=== PATIENT | male | born 1980 | race African-American/Black ===

== ENCOUNTER 2021-05-09 15:29 | Emergency (ER) | payer OTHER ==
[~2021-05-09] VITALS: Ht 175.3 cm; Wt 68.0 kg
[~2021-05-09 15:29] MED LIST: CYCLOBENZAPRINE5 MG PO; IBUPROFEN 800800 MG PO
[2021-05-09 15:34] VITALS: BP 159/72
== END 2021-05-09 17:07 | disposition home or self-care (01) ==
LOC: ER 15:29
DX: B34.9 Viral infection, unspecified (principal); Z20.822 Contact with and (suspected) exposure to COVID-19; Z79.899 Other long term (current) drug therapy